=== PATIENT | male | born 2005 | race Hispanic/Latino ===

== ENCOUNTER 2024-09-02 08:10 | Emergency (ER) | payer SELFPAY ==
[~2024-09-02] VITALS: Ht 167.6 cm; Wt 77.0 kg
[2024-09-02] MEDS ORDERED: BACTRIM DS1 TAB PO (08:49)
[2024-09-02 08:50] VITALS: BP 132/79
== END 2024-09-02 09:02 | disposition home or self-care (01) | DRG 607 ==
LOC: ED 08:10
DX: L72.3 Sebaceous cyst (principal)